=== PATIENT | male | born 1995 | race Asian ===

== ENCOUNTER 2019-11-30 07:51 | Emergency (ER) | payer OTHER ==
[~2019-11-30] VITALS: Ht 185.4 cm; Wt 99.1 kg
[2019-11-30 07:51] VITALS: BP 139/87
== END 2019-11-30 08:25 | disposition home or self-care (01) ==
LOC: M ED 07:51
DX: M65.272 Calcific tendinitis, left ankle and foot (principal)

== ENCOUNTER → 2020-03-28 | Outpatient (CLI) | payer OTHER ==
--- NOTE | 2020-03-28 13:31 | REP ---
INDICATION: PAIN IN LEFT FOOT. COMPARISON: None. TECHNIQUE: Multiple sequences are obtained in the axial, coronal and sagittal planes. FINDINGS: The Achilles, anterior tibial, posterior tibial, flexor hallucis longus, flexor digitorum longus and peroneal tendons are all intact without significant tenosynovitis. The anterior and posterior talofibular, calcaneofibular and deltoid ligaments appear intact. Plantar tendon appears intact. There is no plantar fasciitis. Sinus tarsi appears unremarkable. No ganglion cyst is seen. There is normal amount of joint fluid. There is a focal osteochondral lesion in the medial talar dome. There is severe focal cartilaginous thinning posteriorly at that location. The underlying cortical bone is irregular and there appears to be mild fissuring of the bone. There is moderate underlying marrow edema and cystic change. The abnormal area measures 1.8 by 1. 6 x 1.2 cm. There is a moderate size focal spur of the anterior distal end of tibia. This likely causes anterior impingement. IMPRESSION: There is a focal osteochondral lesion in the medial talar dome. There is severe focal cartilaginous thinning posteriorly at that location. The underlying cortical bone is irregular and there appears to be mild fissuring of the cortex of the bone. There is moderate underlying marrow edema and cystic change. The abnormal area measures 1.8 x 1. 6 x 1.2 cm. There is a moderate size focal spur of the anterior distal end of tibia. This likely causes anterior impingement. <Electronically signed by Al Mg > 03/28/20 [id number]
== END ==
LOC: M RAD 09:06
PROVIDERS: ATTEND Podiatrist
DX: M25.572 Pain in left ankle and joints of left foot (principal)